=== PATIENT | female | born 1960 | race Hispanic/Latino ===

== ENCOUNTER → 2018-04-30 | Day surgery (SDC) | payer OTHER ==
[~2018-04-30] MED LIST: FENTANYL CITRATE/PF 100MCG/2 ML INJ ONE; HYOSCYAMINE SULFATE 0.5 MG/ML INJ ONE; MIDAZOLAM HCL 2 MG/2 ML VIAL ONE; PROPOFOL IV EMULSION 10 MG/ML 50 ML VIAL ONE
[2018-04-30 15:30] VITALS: BP 127/91
--- NOTE | 2018-04-30 15:51 | Operative Report ---
DATE OF PROCEDURE: April 30, 2018 REFERRING PHYSICIAN: Dr. Esther Peñaloza PROCEDURE PERFORMED: Colonoscopy and polypectomy and biopsies. INDICATIONS FOR COLONOSCOPY: Colorectal cancer screening. MEDICATION: Patient was done under MAC. Please see anesthesiologist's note. PROCEDURE: With the patient in the left lateral decubitus position, the flexible fiberoptic Olympus colonoscope was inserted into the rectum with ease and advanced all the way to the cecum. A minute polyp was noted in the cecum that was hot biopsied. The scope was then withdrawn slowly. Mucosa overlying the ascending and transverse, as well as the descending grossly appeared to be within normal limits. There was some patchy intense erythema noted in the sigmoid colon and random biopsies were obtained. The scope was then retroflexed into the distal rectum and small internal was were noted, none of which was actively bleeding. The scope was then straightened out. It was subsequently withdrawn. Patient tolerated the procedure well. IMPRESSION 1. Cecal polyp, hot biopsied. 2. Mild segmental colitis, sigmoid colon, biopsies obtained. 3. Internal hemorrhoids, none actively bleeding. PLAN: Follow up histology. Initiate high-fiber and low-fat diet. Start VSL #3 one p.o. daily. Patient might benefit from a followup colonoscopy in 3-5 years. Job#: [id number] RI cc:ESTHER PEÑALOZA MD
== END | disposition home or self-care (01) ==
LOC: OR 13:03
PROVIDERS: ATTEND Internal Medicine Gastroenterology
DX: Z12.11 Encounter for screening for malignant neoplasm of colon (principal); K63.5 Polyp of colon; K50.10 Crohn's disease of large intestine without complications; K64.8 Other hemorrhoids; Z01.810 Encounter for preprocedural cardiovascular examination
CPT/HCPCS: 45380; 45384; 93005; J1980; J2250; 45378

== ENCOUNTER 2021-08-27 12:39 | Emergency (ER) | payer OTHER ==
[~2021-08-27] VITALS: Ht 152.4 cm; Wt 39.0 kg
[2021-08-27 15:39] VITALS: BP 124/59
[2021-08-27] MEDS ORDERED: ULTRAM50 MG PO (15:49)
== END 2021-08-27 16:12 | disposition home or self-care (01) ==
LOC: ER 13:04
DX: S32.592A Other specified fracture of left pubis, initial encounter for closed fracture (principal); W18.30XA Fall on same level, unspecified, initial encounter; Y99.0 Civilian activity done for income or pay; M19.09 Primary osteoarthritis, other specified site
CPT/HCPCS: 99283